=== PATIENT | male | born 1955 | race Caucasian/White ===

== ENCOUNTER 2017-04-28 12:09 | Emergency (ER) | payer OTHER ==
[~2017-04-28 12:09] MED LIST: CLOP75 PO; COUM10TA PO; COZA100T PO; LEXA10TA PO; LOPR50TA12 PO; LORA-392 PO; PERC5TAB12 PO
[2017-04-28 12:17] VITALS: BP 144/72; PULSE 72; RESP 20; TEMP 98; O2SAT 95
[2017-04-28] MEDS ORDERED: HTN MED (12:26)
--- NOTE | 2017-04-28 12:28 | PD ---
HPI Chief Complaint: Laceration/Skin Injury Time Seen by Provider: 12:24 Travel History International Travel<30 days: No Contact w/Intl Traveler<30days: No Traveled to known affect area: No History of Present Illness HPI 61-year-old male presents emergency Department with a laceration to the lateral aspect of his left fifth finger that occurred about 1 hour ago. Patient states that he was using a regrinder operator and accidentally sliced his finger. Patient states that he is having 'shooting pain' from the site but does have full range of motion. States the pain is mild to moderate that worsens with movement. Patient is right-handed. Patient denies numbness or tingling. He was able to control the bleeding at home. His last tetanus vaccination was within the last 5 years. He does not take any blood thinners. PFSH Past Medical History Hx Anticoagulant Therapy: Yes AAA: Yes Autoimmune Disease: No Cancer: No Cardiovascular Problems: Yes (AAA REPAIR 2 MONTHS AGO) COPD: Yes Diabetes: No Diminished Hearing: No Genitourinary: No Hypertension: Yes Immune Disorder: No Implanted Vascular Access Dvce: No Musculoskeletal: No Psychiatric: No Reproductive: No Respiratory: Yes (COPD) Immunizations Current: No Thyroid Disease: No Past Surgical History Thoracic Surgery: Yes (STENTS FOR AAA) Other Surgery: No Social History Alcohol Use: Yes (OCCASIONALY) Tobacco Use: No Substance Use: No Allergies-Medications (Allergen,Severity, Reaction): Coded Allergies: No Known Allergies (Unverified Allergy, Unknown, 04/28/17) Reported Meds & Prescriptions Reported Meds & Active Scripts Active Doxycycline Hyclate 100 Mg Cap 100 Mg PO BID Reported [Htn Med] Review of Systems Except as stated in HPI: all other systems reviewed are Neg Physical Exam Narrative GENERAL: Well-nourished, well-developed patient. SKIN: Focused skin assessment warm/dry. HEAD: Normocephalic. EYES: No scleral icterus. No injection or drainage. NECK: Supple, trachea midline. No JVD or lymphadenopathy. CARDIOVASCULAR: Regular rate and rhythm without murmurs, gallops, or rubs. RESPIRATORY: Breath sounds equal bilaterally. No accessory muscle use. GASTROINTESTINAL: Abdomen soft, non-tender, nondistended. MUSCULOSKELETAL: No cyanosis, or edema. Left fifth finger- to centimeter laceration BACK: Nontender without obvious deformity. No CVA tenderness. Data Data Last Documented VS Vital Signs Date Time Temp Pulse Resp B/P (MAP) Pulse Ox O2 Delivery O2 Flow Rate FiO2 04/28/17 12:17 98.0 72 20 144/72 (96) 95 Orders Orders Lidocaine 1% Inj (50 Ml) (Xylocaine 1% I (04/28/17 12:30) Lidocaine Pf 1% Inj (Xylocaine-Mpf 1% In (04/28/17 12:45) Wound Care (04/28/17 13:45) Finger ([id number]) (04/28/17 ) Finger ([id number]) (04/28/17 ) Acetamin-Hydrocod 325-5 Mg (Russell 5-325 (04/28/17 17:45) Ed Discharge Order (04/28/17 18:34) MDM Medical Decision Making Medical Screen Exam Complete: Yes Emergency Medical Condition: Yes Differential Diagnosis Left fifth finger laceration, avulsion, abrasion Narrative Course 61-year-old male presents emergency Department with a laceration to the lateral aspect of his left fifth finger that occurred about 1 hour ago. Patient states that he was using a regrinder operator and accidentally sliced his finger. Patient states that he is having 'shooting pain' from the site but does have full range of motion. Patient is right-handed. Patient denies numbness or tingling. His last tetanus vaccination was within the last 5 years. Vital signs stable. Site was irrigated copiously and several contaminants were removed. I thoroughly examined and decided to suture the wound as it did not visually see any other foreign body in the wound. I performed 1 Vicryl internal suture and 6 5-0 Prolene sutures. X-ray ordered and found possible foreign bodies near the wound site. Sutures removed, irrigated multiple times, copiously (3+ irrimax) , re-x-ray. Last Impressions Finger X-Ray 04/28/17 0000 Signed Impressions: Service Date/Time: Friday, April 28, 2017 17:50 - CONCLUSION: Radiopaque debris again seen in the soft tissues volar/medial to the base of the little finger middle phalanx. Apolinar Voss MD Finger X-Ray 04/28/17 0000 Signed Impressions: Service Date/Time: Friday, April 28, 2017 15:03 - CONCLUSION: No evidence of fracture. Nonspecific faint linear calcific densities in soft tissues adjacent to the middle phalanx may were present chronic calcification or foreign bodies. Binu Arce MD I suspect that the foreign body seen on the x-ray is secondary to the initial suture placed at repair. However I did thoroughly explore the area and performed copious irrigation. I do not see any further foreign bodies. I explained the importance of patient follow-up with a hand specialist as it is possible there are still foreign bodies in the finger. Patient will be placed on doxycycline as [place] I advised pt to follow up with the hand specialist. I advised to return to the emergency department immediately if he develops increased redness, swelling, pain, exudate. and patient state understanding and will comply. I explained that if he did not follow-up as discussed that he could lose a finger or potentially worse. 04/30/2017 I placed a call to the patient's phone number on record to follow-up on this wound. Unfortunately, I was unable to speak with the patient. Procedures Procedure Narrative LACERATION LOCATION: Lateral left fifth finger LENGTH: 2 cm NUMBER OF STITCHES/FRANC: 9 50-prolene, 1 vicryl REPAIR: The area of the laceration was prepped with Betadine and sterilely draped. A digital block was performed followed by local anesthesia. the wound was copiously irrigated and explored without evidence of foreign body after irrigation. No obvious tendon injury or neurovascular injury. The wound was closed using 5-0 Prolene. This was a 2 layer repair. A sterile dressing was applied. The patient was advised to keep the dressing clean and dry. Patient tolerated the procedure well. Diagnosis Primary Impression: Finger laceration Qualified Codes: S61.217A - Laceration without foreign body of left little finger without damage to nail, initial encounter Referrals: Hand Surgeon Primary Care Physician Additional Instructions: Follow up with your primary care physician within 2-3 days. If your symptoms persist or worsen, return to the emergency department. Keep area clean and dry for 24 hours. You may bathe as normal afterwards. You may use [id number] triple antibiotic ointments for your injury daily. Change dressings daily. If bleeding starts again, applied pressure and elevate the area. If he developed increased redness, swelling, or pain return to the emergency department. Take all medications as prescribed. Suture removal in 7-10 days. Scripts Doxycycline Hyclate (Doxycycline Hyclate) 100 Mg Cap 100 MG PO BID for Infection, #20 CAP 0 Refills Prov: Mei Lackey 04/28/17 Disposition: 01 DISCHARGE HOME Condition: Stable Mei Lackey Apr 28, 2017 12:28
[2017-04-28] MEDS ORDERED: LIDOCAINE HCL 1% 50 ML VIAL INFIL ONE (12:30)
[2017-04-28] MEDS ORDERED: LIDOCAINE HCL 1% PF 30 ML VIAL INFIL ONE (12:45)
[2017-04-28] MEDS ORDERED: DOXY100C PO (13:45)
--- NOTE | 2017-04-28 15:49 | RADRPT ---
EXAM DATE/TIME: 04/28/2017 15:03 [facility] COMPARISON: No previous studies available for comparison. INDICATIONS : Laceration to 5th digit. MEDICAL HISTORY : None. SURGICAL HISTORY : None. ENCOUNTER: Initial ACUITY: 1 day PAIN SCORE: 5/10 LOCATION: Left 5th Digit. FINDINGS: 3 views of the left fifth digit. Old healed fracture deformity of the fifth metacarpal shaft. No acut e fracture identified. Nonspecific linear calcific densities in the soft tissues adjacent to the midd le phalanx may represent calcification or foreign bodies.. Prominent osteoarthritic findings of the r adiocarpal joint with severe narrowing laterally. Small osteophytes of the proximal interphalangeal j oint. CONCLUSION: No evidence of fracture. Nonspecific faint linear calcific densities in soft tissues adjacent to the middle phalanx may were present chronic calcification or foreign bodies. Binu Arce MD on April 28, 2017 at 15:44 Board Certified Radiologist. This report was verified electronically.
[2017-04-28] MEDS ORDERED: ACETAMINOPHEN/HYDROcodone 325 MG/5 MG TAB PO ONE (17:45)
--- NOTE | 2017-04-28 18:09 | RADRPT ---
EXAM DATE/TIME: 04/28/2017 17:50 [facility] COMPARISON: FINGER LEFT 5TH DIGIT ([id number]), April 28, 2017, 15:03. INDICATIONS : Post suture removal- evaluate for foreign body. Laceration to 5th digit. MEDICAL HISTORY : None. SURGICAL HISTORY : None. ENCOUNTER: Initial ACUITY: 1 day PAIN SCORE: 10/10 LOCATION: Left 5th Digit. FINDINGS: Approximately 5 mm conglomerate of faintly radiopaque debris again seen palmar and medial to the prox imal portion of the middle phalanx of the little finger. No fracture is demonstrated. There is increa sed conspicuity of an overlying soft tissue defect. CONCLUSION: Radiopaque debris again seen in the soft tissues volar/medial to the base of the little finger middle phalanx. Apolinar Voss MD on April 28, 2017 at 18:05 Board Certified Radiologist. This report was verified electronically.
== END 2017-04-28 18:45 | disposition home or self-care (01) ==
LOC: PHEFT 12:09
DX: S61.217A Laceration without foreign body of left little finger without damage to nail, initial encounter (principal); J44.9 Chronic obstructive pulmonary disease, unspecified; I10 Essential (primary) hypertension; W29.8XXA Contact with other powered hand tools and household machinery, initial encounter; Z86.79 Personal history of other diseases of the circulatory system
CPT/HCPCS: 12041; 73140; 90471